=== PATIENT | female | born 1995 | race Caucasian/White ===

== ENCOUNTER 2018-12-27 19:11 | Emergency (ER) | payer MEDICAID, OTHER ==
[~2018-12-27] VITALS: Ht 160 cm; Wt 146.4 kg
[2018-12-27 19:32] VITALS: Ht 160 cm; Wt 146.4 kg
[2018-12-27] MEDS ORDERED: KETOROLAC 60 MG INJ IM STA (20:43)
[2018-12-27] MEDS ORDERED: ACETAMINOPHEN 500 MG TAB PO STA (20:43)
[2018-12-28] MEDS ORDERED: ACET500C5 PO (00:55)
[2018-12-28] MEDS ORDERED: ONDA4TAB14 PO (00:55)
[2018-12-28] MEDS ORDERED: IBUP800T48 PO (00:55)
[2018-12-28 01:16] VITALS: BP 136/80; PULSE 78; RESP 17
--- NOTE | 2019-01-11 20:50 | ERD ---
ER Documentation Chief Complaint Chief Complaint PELVIC PAIN X TODAY. HPI History of Present Illness: 23-year-old female who denies a past medical history coming in today with complaint of pelvic pain today. 2 episodes of vomiting, but no longer has symptoms of nausea or vomiting. Patient denies any other symptoms. Denies any gastrointestinal or genitourinary symptoms. At home pharmacological/nonpharmacological treatment for symptoms: Denies Denies social concerns; Denies recent foreign travel ROS All systems reviewed and are negative except as per history of present illness. Medications Home Meds Active Scripts Ondansetron (Ondansetron Odt) 4 Mg Tab.rapdis, 4 MG PO Q6H PRN for NAUSEA AND/OR VOMITING, #10 TAB Prov:JIMENA RUBIN NP 12/28/18 Acetaminophen* (Tylophen*) 500 Mg Capsule, 2 CAP PO Q6 PRN for PAIN AND OR ELEVATED TEMP, #30 CAP Prov:JIMENA RUBIN V JOAN 12/28/18 Ibuprofen* (Motrin*) 800 Mg Tab, 800 MG PO Q6H PRN for PAIN AND OR ELEVATED TEMP, #30 TAB Prov:JIMENA RUBIN V RAISIN WASHER 12/28/18 Allergies Allergies: Coded Allergies: No Known Allergy (Unverified , 12/27/18) PMhx/Soc Medical and Surgical Hx: pt denies Medical Hx, pt denies Surgical Hx Hx Alcohol Use: No Hx Substance Use: No Hx Tobacco Use: No Smoking Status: Never smoker FmHx Family History: No diabetes Physical Exam Physical Exam Const: No acute distress, febrile Head: Atraumatic Eyes: Normal Conjunctiva ENT: Normal External Ears, Nose and Mouth. Neck: Full range of motion. No meningismus. Resp: Clear to auscultation bilaterally Cardio: Regular rate and rhythm, no murmurs Abd: Soft, pelvic tenderness, non distended. Bowel sounds present. No guarding, no masses, no rigidity Skin: No petechiae or rashes Back: No midline or flank tenderness Ext: No cyanosis, or edema Neur: Awake and alert x3, speaking in clear sentences, no focal deficits or facial asymmetry Psych: Normal Mood and Affect Results 24 hrs Laboratory Tests Test 12/27/18 19:59 12/27/18 20:00 12/27/18 21:13 12/27/18 21:38 POC Beta HCG, NEGATIVE NEGATIVE Qualitative Bedside Urine pH (LAB) 7.0 6.0 Bedside Urine Protein 1+ 2+ (LAB) Bedside Urine Glucose Negative Negative (UA) Bedside Urine Ketones Negative Negative (LAB) Bedside Urine Blood Negative Negative Bedside Urine Nitrite Negative Negative (LAB) Bedside Urine Negative Negative Leukocyte Esterase (L White Blood Count 12.4 10^3/ul Red Blood Count 3.98 10^6/ul Hemoglobin 10.9 g/dl Hematocrit 32.7 % Mean Corpuscular 82.2 fl Volume Mean Corpuscular 27.4 pg Hemoglobin Mean Corpuscular 33.3 g/dl Hemoglobin Concent Red Cell Distribution 15.5 % Width Platelet Count 233 10^3/UL Mean Platelet Volume 12.0 fl Immature Granulocytes 0.300 % % Neutrophils % 76.3 % Lymphocytes % 16.3 % Monocytes % 5.7 % Eosinophils % 1.0 % Basophils % 0.4 % Nucleated Red Blood 0.0 /100WBC Cells % Immature Granulocytes 0.040 10^3/ul # Neutrophils # 9.4 10^3/ul Lymphocytes # 2.0 10^3/ul Monocytes # 0.7 10^3/ul Eosinophils # 0.1 10^3/ul Basophils # 0.1 10^3/ul Nucleated Red Blood 0.0 10^3/ul Cells # Sodium Level 140 mmol/L Potassium Level 4.1 mmol/L Chloride Level 108 mmol/L Carbon Dioxide Level 22 mmol/L Anion Gap 10 Blood Urea Nitrogen 12 mg/dl Creatinine 0.81 mg/dl Est Glomerular Filtrat > 60 mL/min Rate mL/min Glucose Level 102 mg/dl Calcium Level 8.8 mg/dl Total Bilirubin 0.5 mg/dl Direct Bilirubin 0.00 mg/dl Indirect Bilirubin 0.5 mg/dl Aspartate Amino 58 IU/L Transf (AST/SGOT) Alanine 74 IU/L Aminotransferase (ALT/ SGPT) Alkaline Phosphatase 67 IU/L Total Protein 8.0 g/dl Albumin 4.2 g/dl Globulin 3.80 g/dl Albumin/Globulin Ratio 1.10 Lipase 64 U/L Current Medications Medications Dose Sig/Misti Start Time Status Last (Trade) Ordered Route PRN Stop Time Admin Dose Reason Admin Ketorolac 60 mg ONCE STAT 12/27/18 DC 12/27/18 Tromethamine IM 20:43 12/27/18 21:15 (Toradol) 20:46 1,000 mg ONCE STAT 12/27/18 DC 12/27/18 Acetaminophen PO 20:43 12/27/18 21:14 (Tylenol 20:46 Tab) Procedures/MDM ED COURSE: ED course includes a thorough examination and history. The patient was stable throughout ED course. I kept the patient and/or family informed of laboratory and diagnostic imaging results throughout the ED course. LABS: CBC: no e/o of systemic infection or severe anemia; mild leukocytosis at 12.4 CMP: no e/o severe acidosis, alkalosis, renal failure, diabetic ketoacidosis, liver disease; mildly elevated liver enzymes Urine negative Urinalysis positive protein, negative for infection Urogenital wet mount with no clue cells, no trichomonas, no yeast, no signs of infection MEDICATIONS GIVEN IN ER: Acetaminophen , ketorolac patient tolerated medication well with no adverse reactions. Patient reported improvement in pain. DIAGNOSTIC IMAGING: Read by radiologist. Non-OB pelvic ultrasound iMPRESSION: Enlarged, multi fibroid uterus, which obscures the endometrial stripe. Ovaries are not visualized. No adnexal mass identified. RPTAT:HCLE Physician Yesica Date Time Electronically viewed and signed by Physician Yesica on 12/27/2018 22:48 CT abdomen pelvis: IMPRESSION: No inflammation, mass, or lymphadenopathy. Hepatomegaly. No obstructive uropathy or urinary stone. Normal appendix. Enlarged fibroid uterus. RPTAT: HTAR .Narendra Remy MD, MD Date Time Electronically viewed and signed by .Narendra Remy MD, MD on 12/28/2018 00:50 PROCEDURES: None. MEDICAL DECISION MAKING: Patient reassessment at 2300: Results thus far discussed. Patient with fever and pelvic pain with with no source of infection. Shared decision making with patient to do CT abdomen pelvis to rule out any pathological findings. Low suspicion for life-threatening medical emergency. Low suspicion for acute abdominal emergency Otherwise healthy patient presenting with constellation of symptoms likely representing uterine fibroids, acute pain in female pelvis, viral syndrome/febrile illness as characterized by history, physical exam findings, lab findings, imaging findings. Patient reassessment @ 0055: Results discussed. Patient hemodynamically stable. No respiratory distress, otherwise relatively well appearing and nontoxic. Disposition given. Patient educated on diagnoses, prescriptions, follow-up care, return precautions. Strict return precautions given for worsening condition; questions answered discharge. Patient verbalizes understanding of discharge instructions. PRESCRIPTIONS FOR HOME: Zofran, acetaminophen, ibuprofen DISPOSITION: DISCHARGE At this time, patient is stable for discharge and outpatient management. I have instructed the patient to follow-up with his/her primary care physician in 1-2 days. I have discussed with the patient the possibility of needing to see a specialist for further workup and imaging studies if symptoms persist. I have instructed the patient to promptly return to the ER for any new or worsening symptoms including increased pain, fever, nausea, vomiting, weakness or LOC. The patient and/or family expressed understanding of and agreement with this plan. All questions were answered. Home care instructions were provided. DISCLAIMER: Inadvertent spelling and grammatical errors are likely due to EHR/dictation software use and do not reflect on the overall quality of patient care. Also, please note that the electronic time recorded on this note does not necessarily reflect the actual time of the patient encounter. Departure Diagnosis: Primary Impression: Fibroid, uterine Additional Impressions: Acute pain in female pelvis Viral syndrome Condition: Stable Patient Instructions: Uterine Fibroids, Viral Syndrome (Adult) Referrals: [facility] YOU HAVE RECEIVED A MEDICAL SCREENING EXAM AND THE RESULTS INDICATE THAT YOU DO NOT HAVE A CONDITION THAT REQUIRES URGENT TREATMENT IN THE EMERGENCY DEPARTMENT. FURTHER EVALUATION AND TREATMENT OF YOUR CONDITION CAN WAIT UNTIL YOU ARE SEEN IN YOUR DOCTORS OFFICE WITHIN THE NEXT 1-2 DAYS. IT IS YOUR RESPONSIBILITY TO MAKE AN APPOINTMENT FOR FOLOW-UP CARE. IF YOU HAVE A PRIMARY DOCTOR --you should call your primary doctor and schedule an appointment IF YOU DO NOT HAVE A PRIMARY DOCTOR YOU CAN CALL OUR PHYSICIAN REFERRAL HOTLINE AT IF YOU CAN NOT AFFORD TO SEE A PHYSICIAN YOU CAN CHOSE FROM THE FOLLOWING [facility] [address] [facility]. [facility] [address] [facility]. [facility] [address] [facility]. [facility] [address] [facility]. [facility] [address] [facility] [place]. [facility]. [address] [facility]. [facility] YOU HAVE RECEIVED A MEDICAL SCREENING EXAM AND THE RESULTS INDICATE THAT YOU DO NOT HAVE A CONDITION THAT REQUIRES URGENT TREATMENT IN THE EMERGENCY DEPARTMENT. FURTHER EVALUATION AND TREATMENT OF YOUR CONDITION CAN WAIT UNTIL YOU ARE SEEN IN YOUR DOCTORS OFFICE WITHIN THE NEXT 1-2 DAYS. IT IS YOUR RESPONSIBILITY TO MAKE AN APPOINTMENT FOR FOLOW-UP CARE. IF YOU HAVE A PRIMARY DOCTOR --you should call your primary doctor and schedule and appointment IF YOU DO NOT HAVE A PRIMARY DOCTOR YOU CAN CALL OUR PHYSICIAN REFERRAL HOTLINE AT . IF YOU CAN NOT AFFORD TO SEE A PHYSICIAN YOU CAN CHOSE FROM THE FOLLOWING [facility] INSTITUTIONS: [facility] [address] [place] [address] [facility] [address] [place] [address] [facility] [address] [place] [address] Additional Instructions: Thank you very much for allowing us to participate in your care. Your health and safety is our top priority at [facility]. It is important to read all discharge instructions and education provided in your discharge packet. Call your primary care doctor TOMORROW for an appointment during the next 2-4 days and bring all the information and medications prescribed. Have prescriptions filled and follow precisely the directions on the label. -Zofran is a medication for nausea/vomitting; take this medication as needed for nausea/vomiting/decreased appetite. --Acetaminophen as a medication for pain and/or fever. Take this medication as needed for mild to moderate pain. This medication will not cause drowsiness. --Ibuprofen is a medication that will help with pain/inflammation. At the dosage of 600 to 800 mg, this will help with inflammation/swelling. Take this medication as prescribed. If the symptoms get worse and your provider is unavailable, return to the Emergency Department immediately. JIMENA RUBIN NP Jan 11, 2019 20:50
== END 2018-12-28 01:16 | disposition home or self-care (01) ==
LOC: FTE 19:11
DX: D25.9 Leiomyoma of uterus, unspecified (principal); B34.9 Viral infection, unspecified
CPT/HCPCS: 74176; 76856; 80053; 81003; 81025; 83690; 85025; 87210; J1885; Z7610; 36415; 96372